=== PATIENT | male | born 1940 | race Caucasian/White ===

== ENCOUNTER 2016-12-15 10:09 | Emergency (ER) | payer MEDICARE ==
[2016-12-15 11:07] LABS: HEMATOCRIT 46.6 % (42.0-52.0); HEMOGLOBIN 15.2 gm/dl (14.0-18.0); MEAN CELL VOLUME 95.3 fl (81-97); MEAN CORPUSCULAR HEMOGLOBIN 31.1 pg (27-33); MEAN CORPUSCULAR HGB CONC 32.6 g/dl (32-36); MEAN PLATELET VOLUME 11.6 fl (7.4-10.4); PLATELET COUNT 232 K/uL (130-400); RED BLOOD COUNT 4.89 M/uL (4.40-5.70); RED CELL DISTRIBUTION WIDTH 16.2 % (11.5-14.5)
[2016-12-15 11:20] LABS: WHITE BLOOD COUNT W/O DIFF 58.7 K/uL (4.2-12.2)
--- NOTE | 2016-12-15 11:42 | Emergency Department Record ---
History of Present Illness - General Chief Complaint: Cough Stated Complaint: URI Time Seen by Provider: 12/15/16 10:39 Source: Patient, Family Mode of Arrival: Ambulatory Limitations: No limitations - History of Present Illness Initial Comments: pt has a productive cough and is worried hes coming down w pneumonia. 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 he has a hx of severe pneumonia when he was on a cruise and was almost intubated. the pt started taking cipro 3 days ago. pt is concerned becauuse he leaves for [place] for 3 wks tomorrow. Complaint: Cough, Nasal congestion, Rhinorrhea Onset/Timin -: Days(s) Severity scale (1-10): 1 Consistency: Constant Improves With: Nothing Worsens With: Nothing Associated Symptoms: Cough, Hoarseness - Related Data Home Medications Medication Instructions Recorded Confirmed Last Taken Aspirin 81 mg PO DAILY 12/15/16 12/15/16 1 Day Ago ~12/14/16 Ciprofloxacin HCl [Cipro] 500 mg PO Q12HR 12/15/16 12/15/16 1 Day Ago ~12/14/16 Metoprolol Tartrate 12.5 mg PO BID 12/15/16 12/15/16 1 Day Ago ~12/14/16 Multivitamin [Multi-Vitamin Daily] 1 each PO DAILY 12/15/16 12/15/16 1 Day Ago ~12/14/16 Prednisolone Acetate 1% Opth [Pred 1 drop OP DAILY 12/15/16 12/15/16 1 Day Ago Forte] ~12/14/16 Simvastatin 40 mg PO DAILY 12/15/16 12/15/16 1 Day Ago ~12/14/16 Testosterone [Androderm] 2 each TD DAILY 12/15/16 12/15/16 1 Day Ago ~12/14/16 Timolol Maleate 0.5% 5Ml Btl 5 drop OP DAILY 12/15/16 12/15/16 1 Day Ago [Timoptic] ~12/14/16 Warfarin Sodium [Coumadin] 4 mg PO ASDIR 12/15/16 12/15/16 1 Day Ago ~12/14/16 Warfarin Sodium [Coumadin] 5 mg PO ASDIR 12/15/16 12/15/16 1 Day Ago ~12/14/16 Zolpidem Tartrate [Ambien] 10 mg PO QHS 12/15/16 12/15/16 1 Day Ago ~12/14/16 Previous Rx's Medication Instructions Recorded Amoxicillin/Potassium Clav 1 tab PO BID #20 tab 12/15/16 [Augmentin 875-125 Tablet] Promethazine HCl/Codeine 5 - 10 ml PO .AT BEDTIME PRN #118 12/15/16 [Phenergan W/Codeine] ml Allergies Allergy/AdvReac Type Severity Reaction Status Date / Time No Known Drug Allergies Allergy Verified 12/15/16 10:25 Travel Screening - Travel/Exposure Within Last 30 Days Have you traveled within the last 30 days?: No - Travel/Exposure Within Last Year Have you traveled outside the [place] in the last year?: No - Additonal Travel Details Have you been exposed to anyone with a communicable illness?: No - Travel Symptoms Symptom Screening: None Review of Systems Reviewed: No additional complaints except as noted below Constitutional: Reports: As per HPI. Denies: Chills, Fever, Malaise, Night sweats, Weakness, Weight change Eyes: Reports: As per HPI. Denies: Eye discharge, Eye pain, Photophobia, Vision change ENT: Reports: As per HPI. Denies: Congestion, Dental pain, Ear pain, Epistaxis , Hearing loss, Throat pain Respiratory: Reports: As per HPI. Denies: Cough, Dyspnea, Hemoptysis, Stridor, Wheezes Cardiovascular: Reports: As per HPI. Denies: Arrhythmia, Chest pain, Dyspnea on exertion, Edema, Murmurs, Orthopnea, Palpitations, Paroxysmal nocturnal dyspnea, Rheumatic Fever, Syncope Endocrine: Reports: As per HPI. Denies: Fatigue, Heat or cold intolerance, Polydipsia, Polyuria Gastrointestinal: Reports: As per HPI. Denies: Abdominal pain, Constipation, Diarrhea, Hematemesis, Hematochezia, Melena, Nausea, Vomiting Genitourinary: Reports: As per HPI. Denies: Dysuria, Frequency, Hematuria, Incontinence, Retention, Testicular pain, Testicular mass, Urgency Musculoskeletal: Reports: As per HPI. Denies: Arthralgia, Back pain, Gout, Joint swelling, Myalgia, Neck pain Skin: Reports: As per HPI. Denies: Bruising, Change in color, Change in hair/ nails, Lesions, Pruritus, Rash Neurological: Reports: As per HPI. Denies: Abnormal gait, Confusion, Headache, Numbness, Paresthesias, Seizure, Tingling, Tremors, Vertigo, Weakness Psychiatric: Reports: As per HPI. Denies: Anxiety, Auditory hallucinations, Depression, Homicidal thoughts, Suicidal thoughts, Visual hallucinations Hematological/Lymphatic: Reports: As per HPI. 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 - GI Hx GI Disorders: No Comment:: gastric bypass - Hx Genitourinary Disorders: No - ENDOCRINE Hx Diabetes: No Hx Thyroid Disease: No - MUSCULOSKELETAL Hx Arthritis: Yes - PSYCH Hx Psych Problems: No - HEMATOLOGY/ONCOLOGY Hx Bruising: Yes Hx Cancer: Yes (lymphoma) Hx Chemotherapy: No Hx Radiation Therapy: No Family Medical History Any Significant Family History?: Yes Physical Exam - General General Appearance: Alert, Oriented x3, Cooperative, Mild distress - Head Head exam: Normal inspection - Eye Eye exam: Normal appearance, PERRL, EOMI Pupils: Normal accommodation - ENT ENT exam: Normal exam, Mucous membranes moist, Normal external ear exam, Normal orophraynx, TM's normal bilaterally Ear exam: Normal external inspection. negative: External canal tenderness Nasal Exam: Normal inspection. negative: Discharge, Sinus tenderness Mouth exam: Normal external inspection, Tongue normal Teeth exam: Normal inspection. negative: Dental caries Throat exam: Normal inspection. negative: Tonsillar erythema, Tonsillar exudate - Neck Neck exam: Normal inspection, Full ROM. negative: Tenderness - Respiratory Respiratory exam: Normal lung sounds bilaterally. negative: Respiratory distress - Cardiovascular Cardiovascular Exam: Regular rate, Normal rhythm, Normal heart sounds - GI/Abdominal GI/Abdominal exam: Soft, Normal bowel sounds. negative: Tenderness - Rectal Rectal exam: Deferred - exam: Deferred - Extremities Extremities exam: Normal inspection, Full ROM, Normal capillary refill. negative: Tenderness - Back Back exam: Reports: Normal inspection, Full ROM. Denies: Muscle spasm, Rash noted, Tenderness - Neurological Neurological exam: Alert, CN II-XII intact, Normal gait, Oriented X3 - Psychiatric Psychiatric exam: Normal affect, Normal mood - Skin Skin exam: Dry, Intact, Normal color, Warm Course Vital Signs 12/15/16 10:15 Temperature 98.2 F Pulse Rate 77 Respiratory 20 Rate Blood Pressure 145/93 Pulse Ox 98 Medical Decision Making - Lab Data Result diagrams: 12/15/16 10:58 Lab Results 12/15/16 Range/Units 10:58 WBC 58.7 H* (4.2-12.2) K/uL RBC 4.89 (4.40-5.70) M/uL Hgb 15.2 (14.0-18.0) gm/dl Hct 46.6 (42.0-52.0) % MCV 95.3 (81-97) fl MCH 31.1 (27-33) pg MCHC 32.6 (32-36) g/dl RDW 16.2 H (11.5-14.5) % Plt Count 232 (130-400) K/uL MPV 11.6 H (7.4-10.4) fl Eosinophils % Not Reportable Basophils % Not Reportable Disposition Disposition: Discharge Clinical Impression: Bronchitis Disposition: Home, Self-Care Condition: (1) Good Instructions: Acute Bronchitis (ED) Additional Instructions: follow up with family doctor. return sooner if worse. continue cipro. augmentin if illness worsens with fever. wear mask on plane Prescriptions: Amoxicillin/Potassium Clav [Augmentin 875-125 Tablet] 1 tab PO BID #20 tab Promethazine HCl/Codeine [Phenergan W/Codeine] 5 - 10 ml PO .AT BEDTIME PRN # 118 ml PRN Reason: Cough Forms: Patient Portal Access Quality - Quality Measures Quality Measures: N/A - Blood Pressure Screening Does Patient Have Any of the Following: Active Dx of HTN Blood Pressure Classification: Hypertensive Reading Systolic Measurement: 145 Diastolic Measurement: 93 Screening for High Blood Pressure: Patient Exclusion, Hx of HTN [[id number]]
[2016-12-15 12:19] LABS: INR 1.84
--- NOTE | 2016-12-16 21:21 | RADIOLOGY REPORT ---
EXAM: CHEST 2 VIEWS HISTORY: ACUTE NONPRODUCTIVE COUGH FOR FOUR DAYS, SORE THROAT. TECHNIQUE: Two-view chest. COMPARISON: None. ENCOUNTER: Initial. FINDINGS: Sternal wires are present. Lungs are clear. Cardiac silhouette, diaphragm, and osseous structures are unremarkable. IMPRESSION: NO ACUTE INTRATHORACIC PROCESS. JOB NUMBER: [id number] MTDD
== END 2016-12-15 12:08 | disposition home or self-care (01) ==
LOC: ER 10:09
DX: J20.9 Acute bronchitis, unspecified (principal)
CPT/HCPCS: 71020; 85027; 85610; 99283